=== PATIENT | female | born 1960 | race Caucasian/White ===

== ENCOUNTER 2016-10-11 21:31 | Emergency (ER) | payer BC ==
[~2016-10-11] VITALS: Ht 162.6 cm; Wt 63.5 kg
[~2016-10-11 21:31] MED LIST: AUGMENTIN 875-1 EACH PO; IBUPROFEN400 MG PO; IBUPROFEN800 MG PO; NORCO 5-325 TA1 EACH PO; STOOL SOFTENER1 EAC2 PO; SUDAFED30 MG PO
[2016-10-12] MEDS ORDERED: HYDROXYZINE HCL25 MG PO (00:14)
[2016-10-12] MEDS ORDERED: TRIAMCINOLONE A15 GM TOP (00:14)
== END 2016-10-12 00:25 | disposition home or self-care (01) ==
LOC: ED 21:31
DX: S10.96XA Insect bite of unspecified part of neck, initial encounter (principal); W57.XXXA Bitten or stung by nonvenomous insect and other nonvenomous arthropods, initial encounter; Z87.442 Personal history of urinary calculi; Z90.710 Acquired absence of both cervix and uterus; Z88.1 Allergy status to other antibiotic agents; Z88.8 Allergy status to other drugs, medicaments and biological substances
CPT/HCPCS: 99283